=== PATIENT | male | born 1950 | race Caucasian/White ===

== ENCOUNTER 2018-05-28 14:43 | Emergency (ER) | payer MEDICARE, OTHER, SELFPAY ==
[2018-05-28 14:44] VITALS: BMI 27.1
--- NOTE | 2018-05-28 15:51 | ED PDOC ---
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 She states that the surgery was for a disc due to an accident and admits that patient has been on blood thinners since then because he was developing blood clots in the lungs. Pt denies any chest pain or shortness of breath. PMD: none provided - Risk Factors SAH Risk Factors: Neg: Sudden Onset Of Pain, Worst Headache Of Life Past Medical History Reviewed: Historical Data, Nursing Documentation, Vital Signs Vital Signs: Last Vital Signs Temp 97.6 F 05/28/18 15:00 Pulse 67 05/28/18 15:00 Resp 17 05/28/18 15:00 BP 139/87 05/28/18 15:00 Pulse Ox 99 05/28/18 15:00 - Medical History PMH: Fractures (RIGHT ANKLE ) - Surgical History Other surgeries: Neck Surgery - Family History Family History: States: Unknown Family Hx - Social History Current smoker - smoking cessation education provided: No Alcohol: None Drugs: Denies - Immunization History Hx Tetanus Toxoid Vaccination: No Hx Influenza Vaccination: No Hx Pneumococcal Vaccination: No - Home Medications Home Medications: Ambulatory Orders Medication Instructions Recorded Naproxen 500 mg PO PRN PRN 05/05/14 Diphenhydramine HCl [Benadryl 50 mg PO Q6 #24 tab 03/04/15 Allergy] Famotidine [Pepcid] 20 mg PO DAILY #10 tab 03/04/15 Prednisone 40 mg PO DAILY #8 tab 03/04/15 Acetaminophen [Tylenol 325mg tab] 2 tab PO Q4H PRN #20 tab 05/28/18 Meclizine [Meclizine*] 25 mg PO Q6 PRN #20 tab 05/28/18 - Allergies Allergies/Adverse Reactions: Allergies Allergy/AdvReac Type Severity Reaction Status Date / Time No Known Allergies Allergy Unverified 05/28/18 15:03 Review of Systems ROS Statement: Except As Marked, All Systems Reviewed And Found Negative Constitutional: Positive for: Weakness Cardiovascular: Positive for: Light Headedness. Negative for: Chest Pain Respiratory: Negative for: Shortness of Breath Musculoskeletal: Positive for: Neck Pain, Shoulder Pain, Back Pain Neurological: Positive for: Headache, Dizziness Physical Exam - Reviewed Nursing Documentation Reviewed: Yes Vital Signs Reviewed: Yes - Physical Exam Appears: Positive for: Non-toxic, No Acute Distress Head Exam: Positive for: ATRAUMATIC, NORMAL INSPECTION, NORMOCEPHALIC Skin: Positive for: Normal Color, Warm, DRY Eye Exam: Positive for: EOMI, Normal appearance, PERRL Neck: Positive for: Normal, Painless ROM, Supple Cardiovascular/Chest: Positive for: Regular Rate, Rhythm. Negative for: Murmur Respiratory: Positive for: Normal Breath Sounds. Negative for: Respiratory Distress Gastrointestinal/Abdominal: Positive for: Normal Exam, Soft. Negative for: Tenderness Back: Positive for: Normal Inspection. Negative for: L CVA Tenderness, R CVA Tenderness, Vertebral Tenderness Extremity: Positive for: Normal ROM. 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 Negative for: Lethargic, Motor/Sensory Deficits, Facial Droop - Laboratory Results Result Diagrams: 05/28/18 15:35 05/28/18 15:35 - ECG O2 Sat by Pulse Oximetry: 99 (RA) Pulse Ox Interpretation: Normal Medical Decision Making Medical Decision Making: Time: 15:36 Plan: --CT Cervical Spine --CT Head --EKG --CMP --ED Urine Dipstick --CBC --Coags --CXR --Glucose, Blood, POC --Urinalysis --------- -------- Scribe Attestation: Documented by Natasha Griffiths, acting as a scribe for Alyssa Rock MD. Provider Scribe Attestation: All medical record entries made by the Scribe were at my direction and personally dictated by me. I have reviewed the chart and agree that the record accurately reflects my personal performance of the history, physical exam, medical decision making, and the department course for this patient. I have also personally directed, reviewed, and agree with the discharge instructions and disposition. Disposition - Clinical Impression Clinical Impression: Headache, Dizziness - Disposition Referrals: [email or web address] [place] [Outside] [facility] [Outside] Disposition: Routine/Home Disposition Time: 18:44 Condition: STABLE Additional Instructions: DO NOT DRIVE WHEN TAKING MECLIZINE! Prescriptions: Acetaminophen [Tylenol 325mg tab] 2 tab PO Q4H PRN #20 tab PRN Reason: Fever >100.4 F Meclizine [Meclizine*] 25 mg PO Q6 PRN #20 tab PRN Reason: Dizziness Instructions: Headache, Adult, Dizziness, Nonvertigo, (DC) Forms: [email or web address] (Green[place]ic)
[2018-05-28 16:13] LABS: BASO % 0.2 % (0.0-2.0); EOS # 0.1 K/uL (0.0-0.7); EOS % 0.6 % (0.0-4.0); HEMOGLOBIN 14.4 g/dL (12.0-18.0); LYMPH # 1.7 K/uL (1.0-4.3); LYMPH % 18.5 % (20.0-40.0); MEAN CELL VOLUME 93.7 fl (80.0-94.0); MEAN CORPUSCULAR HEMOGLOBIN 31.7 pg (27.0-31.0); MEAN CORPUSCULAR HGB CONC 33.9 g/dL (33.0-37.0); MEAN PLATELET VOLUME 8.5 fl (7.2-11.7); MONO # 0.5 K/uL (0.0-0.8); MONO % 5.3 % (0.0-10.0); NEUT # 6.9 K/uL (1.8-7.0); NEUT % 75.4 % (50.0-75.0); NRBC % 0.1 % (0.0-0.0); RBC 4.54 Mil/uL (4.40-5.90); RED CELL DISTRIBUTION WIDTH 13.2 % (11.5-14.5); WHITE BLOOD COUNT 9.2 K/uL (4.8-10.8)
[2018-05-28 16:16] LABS: INR 2.9; PROTHROMBIN TIME 32.7 Seconds (9.8-13.1)
[2018-05-28 16:18] LABS: PARTIAL THROMBOPLASTIN TIME 52.1 Seconds (25.6-37.1)
[2018-05-28 16:21] LABS: URINE BILIRUBIN NEGATIVE (NEGATIVE); URINE BLOOD SMALL (NEGATIVE); URINE CLARITY CLEAR (Clear); URINE COLOR YELLOW (YELLOW); URINE GLUCOSE (UA) NEG (NEGATIVE); URINE HYALINE CAST 0-2 /hpf (0-2); URINE LEUKOCYTE ESTERASE NEG Leu/uL (Negative); URINE PROTEIN NEGATIVE (NEGATIVE); URINE UROBILINOGEN 0.2-1.0 mg/dL (0.2-1.0)
--- NOTE | 2018-05-28 16:25 | RAD ---
Date of service: 05/28/2018 HISTORY: Dizziness COMPARISON: Comparison chest dated 07/02/2015. FINDINGS: LUNGS: No active pulmonary disease. PLEURA: No significant pleural effusion identified, no pneumothorax apparent. CARDIOVASCULAR: No aortic atherosclerotic calcification present. Normal cardiac size. No pulmonary vascular congestion. OSSEOUS STRUCTURES: Multilevel ACDF plate seen overlying the lower cervical region. Mild multilevel degenerative spondylosis of the thoracic spine. VISUALIZED UPPER ABDOMEN: Normal. OTHER FINDINGS: None. IMPRESSION: No active disease.
[2018-05-28 16:28] LABS: ALB/GLOB RATIO 1.5 (1.0-2.1); ALBUMIN 4.3 g/dL (3.5-5.0); ALT/SGPT 27 U/L (21-72); AST/SGOT 25 U/L (17-59); BLOOD UREA NITROGEN 16 mg/dl (9-20); CALCIUM 9.6 mg/dL (8.4-10.2); GFR NON-AFRICAN AMERICAN > 60
--- NOTE | 2018-05-28 16:56 | CT ---
Date of service: 05/28/2018 PROCEDURE: CT HEAD WITHOUT CONTRAST. HISTORY: Posterior BENJAMIN COMPARISON: Comparison made with prior CT scan brain 07/02/2015 TECHNIQUE: Axial computed tomography images were obtained through the head/brain without intravenous contrast. Radiation dose: Total exam DLP = 834.17 mGy-cm. This CT exam was performed using one or more of the following dose reduction techniques: Automated exposure control, adjustment of the mA and/or kV according to patient size, and/or use of iterative reconstruction technique. FINDINGS: HEMORRHAGE: No acute parenchymal, subarachnoid nor extra-axial hemorrhage. BRAIN: Redemonstrated are minimal chronic periventricular white matter ischemic changes.. Note that possibility of a small hyperacute infarct cannot be excluded. Mild generalized volume loss with enlarged bifrontal subarachnoid spaces also centrally unchanged from prior exam. No obvious parenchymal nor extra-axial masses or collections identified on this noncontrast study. VENTRICLES: Unremarkable. No hydrocephalus. CALVARIUM: There are no calvarial fractures. Old fracture deformity right lamina papyracea unchanged PARANASAL SINUSES: . Minimal mucosal thickening seen within a few ethmoid air cells MASTOID AIR CELLS: Unremarkable as visualized. No inflammatory changes. OTHER FINDINGS: Orbits and contents unremarkable. IMPRESSION: Redemonstrated are minimal chronic periventricular white matter ischemic changes.. Note that possibility of a small hyperacute infarct cannot be excluded. Mild generalized volume loss with enlarged bifrontal subarachnoid spaces also centrally unchanged from prior exam. No obvious parenchymal nor extra-axial masses or collections identified on this noncontrast study
--- NOTE | 2018-05-28 17:01 | CT ---
Date of service: 05/28/2018 PROCEDURE: CT Cervical Spine without contrast HISTORY: Neck pain COMPARISON: None available. TECHNIQUE: Axial computed tomography images were obtained of the cervical spine without the use of intravenous contrast. Coronal and sagittal reformatted images were created and reviewed. Radiation dose: Total exam DLP = 337.57 mGy-cm. This CT exam was performed using one or more of the following dose reduction techniques: Automated exposure control, adjustment of the mA and/or kV according to patient size, and/or use of iterative reconstruction technique. FINDINGS: Multilevel ACDF. There has been discectomy and fusion at the C4-C5, C5-C6 and C6-C7 disc space levels with prostatic hardware with apparent [place] bone graft material... Fusion appears solid. Four level ACDF plate attached to the C4 through C7 segments by 2 cortical screws at each level. Hardware is intact without evidence of loosening or infection.. Note that the hardware results in mild streak and beam hardening artifact diminishing fine soft tissue and bone detail At the C3-C4 level, there is adequate disc height. Small asymmetric broad-based bulge of the posterior annulus larger on the left than right is present. The disc flattens the ventral surface of the thecal sac and cord. Central canal is slightly narrowed. The uncovertebral joints exhibit minimal degenerative squaring. Facets also slightly overgrown. Exit foramina are narrowed bilaterally. There are minor degenerative squaring and over the grown uncovertebral joint changes the seen at the C4-C5 through the C6-C7 levels. The central canal is marginal to adequate at the C 4 C5 and C5-C6 levels. Variable bilateral foraminal narrowing. Paraspinal soft tissues unremarkable. OTHER FINDINGS: None. IMPRESSION: No acute fractures. Multilevel ACDF. Fusion appears solid. Hardware intact with no evidence of failure. Mild multilevel degenerative spondylosis.
[2018-05-28 18:53] VITALS: BP 149/72; PULSE 68; RESP 18; TEMP 98.1
[2018-05-28 20:32] VITALS: O2SAT 99
--- NOTE | 2018-05-29 17:57 | CARD ---
APPROVED REPORT Date of service: 05/28/2018 EKG Measurement Heart [id number] <Conclusion> Normal sinus rhythm Normal ECG
== END 2018-05-28 18:50 | disposition home or self-care (01) ==
LOC: H.ER 14:43
DX: R42 Dizziness and giddiness (principal); M62.81 Muscle weakness (generalized); Z88.6 Allergy status to analgesic agent